=== PATIENT | male | born 1995 | race Caucasian/White ===

== ENCOUNTER 2017-07-11 19:59 | Emergency (ER) | payer BC ==
[~2017-07-11] VITALS: Ht 172.7 cm; Wt 90.9 kg
[2017-07-11 20:09] VITALS: BP 117/57; TEMP 98.2
[2017-07-11 21:59] VITALS: PULSE 75
== END 2017-07-11 22:00 | disposition home or self-care (01) ==
LOC: COL.ER 19:59
DX: S93.401A Sprain of unspecified ligament of right ankle, initial encounter (principal); X50.0XXA Overexertion from strenuous movement or load, initial encounter; Y93.68 Activity, volleyball (beach) (court)